=== PATIENT | male | born 1955 | race Caucasian/White ===

== ENCOUNTER 2017-11-10 10:11 | Day surgery (SDC) | payer BC ==
[~2017-11-10 10:11] MED LIST: CEFAZOLIN 2 GM/D5W RTU 2 GM/50 ML RTUPB IV PRN
--- NOTE | 2017-11-10 11:05 | RADIOLOGY REPORT (SQ) ---
EXAM DESCRIPTION: CHEST SINGLE VIEW COMPLETED DATE/TIME: 11/10/2017 10:54 am REASON FOR STUDY: preop COMPARISON: None. EXAM PARAMETERS: NUMBER OF VIEWS: One view. TECHNIQUE: Single frontal radiographic view of the chest acquired. RADIATION DOSE: NA LIMITATIONS: None. FINDINGS: LUNGS AND PLEURA: No opacities, masses or pneumothorax. No pleural effusion. MEDIASTINUM AND HILAR STRUCTURES: No masses. Contour normal. HEART AND VASCULAR STRUCTURES: Heart normal in size. Normal vasculature. BONES: Old healed right lateral 7th rib fracture HARDWARE: None in the chest. OTHER: No other significant finding. IMPRESSION: NO ACUTE RADIOGRAPHIC FINDING IN THE CHEST. TECHNICAL DOCUMENTATION: JOB ID: [id number] [employer]- All Rights Reserved Reading location - IP/workstation name: [email or web address]
[2017-11-10] MEDS ORDERED: BUPIVACAINE HCL 0.5 % INJ/PF 30 ML SDV ONE (11:14)
[2017-11-10] MEDS ORDERED: MIDAZOLAM 2 MG/2 ML INJ ONE (11:17)
[2017-11-10] MEDS ORDERED: PROPOFOL INJ 200 MG/20 ML VIAL IV ONE (11:18)
[2017-11-10] MEDS ORDERED: FENTANYL CITRATE INJ/PF 100 MCG/2 ML AMPUL ONE ×2 (11:18→14:45)
[2017-11-10 11:47] LABS: HEMATOCRIT 42.1 % (37.9-51.0); HEMOGLOBIN 14.3 g/dL (13.5-17.0); MEAN CORPUSCULAR HEMOGLOBIN 30.6 pg (27.0-33.4); MEAN CORPUSCULAR HGB CONC 34.1 g/dL (32.0-36.0); MEAN CORPUSCULAR VOLUME 90 fl (80-97); PLATELET COUNT 187 10^3/uL (150-450); RED BLOOD COUNT 4.68 10^6/uL (4.35-5.55); RED CELL DISTRIBUTION WIDTH 13.4 % (11.5-14.0); WHITE BLOOD COUNT 6.4 10^3/uL (4.0-10.5)
[2017-11-10 11:52] LABS: ANION GAP 9 (5-19); BLOOD UREA NITROGEN 20 mg/dL (7-20); CALCIUM 8.8 mg/dL (8.4-10.2); CARBON DIOXIDE 29 mmol/L (22-30); CHLORIDE 105 mmol/L (98-107); GLUCOSE 85 mg/dL (75-110); POTASSIUM 4.3 mmol/L (3.6-5.0); SODIUM 143.3 mmol/L (137-145)
[2017-11-10] MEDS ORDERED: FENTANYL CITRATE INJ/PF 100 MCG/2 ML AMPUL IV PRN ×2 (12:34→14:35)
[2017-11-10] MEDS ORDERED: DIPHENHYDRAMINE HCL 50 MG/ML VIAL IV PRN (12:34)
[2017-11-10] MEDS ORDERED: EPHEDRINE SULFATE INJ 50 MG/1 ML AMPULE ONE (13:13)
[2017-11-10] MEDS ORDERED: ONDANSETRON HCL INJ/PF 4 MG/2 ML SDV IV PRN (14:35)
[2017-11-10] MEDS ORDERED: HYDROCODONE/ACETAMINOPHEN 5-325 MG TABLET PO PRN (14:35)
--- NOTE | 2017-11-10 14:35 | Discharge Summary ---
Discharge Summary (SDC) - Discharge Final Diagnosis: Right index finger radial digital nerve laceration Date of Surgery: 11/10/17 Discharge Date: 11/10/17 Condition: Good Treatment or Instructions: Schedule Follow Up w/ Dr. Jovani Morin @ [facility] for Surgery to be seen in 10-14 days or as scheduled Finger: [place]: [place]: Ice and elevate Keep splint clean/dry/intact. If your fingers become numb please unwrap the Adam wrap but leave the splint in place, if the sensation does not return within 30 minutes please return to the emergency department. May begin finger range of motion attempting to make full fist. Please use ibuprofen (Motrin or Advil) 600-800 mg every 8 hours as needed for pain or fever DO NOT TAKE w/ TORADOL may use once TORADOL complete. You may also use acetaminophen (Tylenol) 1000 mg every 4-6 hours as needed for pain or fever. Please be aware that many medications contain acetaminophen, do not exceed a total of 1000 mg of acetaminophen every 6 hours. If ibuprofen and acetaminophen are not sufficient for your pain you may take the Percocet/[place]. Please be aware that the Percocet/[place] does contain Tylenol. Stool softener of choice when on pain medication. Referrals: FADI TORREZ MD [Primary Care Provider] - Discharge Diet: As Tolerated Respiratory Treatments at Home: Deep Breathing/Coughing Discharge Activity: No Lifting Over 10 Pounds, No Lifting/Push/Pulling Report the Following to Your Physician Immediately: Fever over 101 Degrees, Unusual Bleeding, Redness, Swelling, Warmth, Increased Soreness
--- NOTE | 2017-11-10 14:35 | Operative Report ---
Operative Report DATE OF SURGERY: 11/10/17 PREOPERATIVE DIAGNOSIS: Left index finger radial digital nerve laceration POSTOPERATIVE DIAGNOSIS: Same OPERATION: Left index radial digital nerve reconstruction utilizing allograft. SURGEON: ROBYN HYATT ANESTHESIA: GA COMPLICATIONS: None ESTIMATED BLOOD LOSS: Minimal INTRAOPERATIVE FINDINGS: 1.2 cm radial digital nerve defect PROCEDURE: Indication for above procedure: 62-year-old male who sustained injury to his index finger at work with a puncture wound. According to the patient when he took the screw out of his finger a small piece of tissue was removed. On his initial consultation patient complained of numbness but his pain had improved but after 7 days his pain significantly worsened and began having burning pain along with his numbness. At that point we discussed treatment options once again including operative versus nonoperative intervention after discussing risk and benefits joint decision was made to proceed with operative treatment. Procedure In Detail: Patient was seen and evaluated in the preoperative holding area. The LEFT Upper extremity was initialized and marked. Patient received 2g of Ancef IV for bacterial prophylaxis. Patient was taken back to the operative room where transferred to the operative table and placed under general anesthesia. Once they were adequately anesthetized a nonsterile tourniquet was placed on the upper extremity. A surgical team debriefing was performed ensuring all instrumentation was available, the surgical procedure was discussed with possible concerns reviewed. The upper extremity was prepped with chlorhexidine and alcohol and draped in a sterile fashion. A timeout was done identifying correct patient, procedure and extremity everyone in attendance agree with this and verbalized no concerns. The extremity was exsanguinated the tourniquet was inflated to 250 mmHg. Incision was started at the puncture wound extending proximally and distally with windlace machine operator extensions. Blunt dissection was performed. There is significant scarring at the level of the a 4 tish radially. Blunt dissection was performed to isolate the proximal and distal radial digital nerve which was significantly scarred to the surrounding soft tissues. Once appropriately isolated the microscope was utilized to evaluate for normal appearing nerve fascicles. Approximately the nerve was resected until normal fascicles appeared. Distally there fascicles were identified normal approximately 1 mm proximal to the trifurcation. Once debrided to normal fascicles there is approximately 2 cm nerve gap and thus a 1-2 mm x 30 mm Avance nerve graft was opened and placed in saline. Once it was the appropriate consistency the nerve was approximated with 2 simple 9-0 nylon sutures via epineural repair distally the nerve was then resected and reapproximated proximally with 2 simple 9-0 nylon sutures via epineural repair the nerve was repaired without tension with the finger in full extension. With passive range of motion of the digit there is no evidence of tension on the nerve. A 3 x 15 mm nerve protector was converted to a nerve connector and secured along the proximal repair site with interrupted 8-0 nylon suture. A second 3 x 15 mm nerve protector was converted to a nerve connector and secured protecting the distal repair site with interrupted 8-0 nylon suture. At completion of the case the wound was copiously irrigated with normal saline. The tourniquet was deflated and compression was held for 2 minutes. Any peripheral bleeding was controlled with bipolar cautery until the wound was dry. Wound reapproximated with interrupted 4-0 nylon suture. Xeroform 4 x 4's and a radial gutter splint was placed in the intrinsic plus position. Patient had good peripheral perfusion with normal skin turgor at the completion of the case. Sponge counts, instrument counts, needle counts counts were correct. Patient was then awoken from anesthesia. Transferred from the operating room table to the operating room stretcher. There was no intraoperative complications patient tolerated procedure well stable to PACU. Postoperative plan: Patient will follow-up in the office in 2 weeks for suture removal. Will be started and seen in occupational therapy prior to postoperative follow-up be fitted for a thermoplastic splint and begin range of motion as per digital nerve repair protocol.
[2017-11-10] MEDS: FENTANYL CITRATE INJ/PF 100 MCG/2 ML AMPUL IV PRN ×2 (14:45→14:55)
[2017-11-10] MEDS ORDERED: PROMETHAZINE HCL INJ 25 MG/1 ML VIAL ONE (15:05)
[2017-11-10] MEDS ORDERED: DEXAMETHASONE SOD PHOSPHATE INJ 4 MG/1 ML VIAL ONE (15:44)
[2017-11-10] MEDS ORDERED: SUCCINYLCHOLINE CHLORIDE INJ 200 MG/10 ML VIAL ONE (15:44)
[2017-11-10] MEDS ORDERED: KETOROLAC TROMETHAMINE 60 MG/2 ML SDV ONE (15:44)
[2017-11-10] MEDS ORDERED: ONDANSETRON HCL INJ/PF 4 MG/2 ML SDV ONE (15:44)
[2017-11-10 17:14] VITALS: BP 135/89
--- NOTE | 2017-11-10 18:18 | EKG REPORT ---
SEVERITY:- NORMAL ECG - SINUS RHYTHM : Confirmed by: Jono Webber 10-Nov-2017 18:17:39
== END 2017-11-10 17:08 | disposition home or self-care (01) ==
LOC: OROUT 10:11
PROVIDERS: ATTEND Orthopaedic Surgery
DX: S64.490A Injury of digital nerve of right index finger, initial encounter (principal); W45.0XXA Nail entering through skin, initial encounter; Y92.69 Other specified industrial and construction area as the place of occurrence of the external cause; Y99.0 Civilian activity done for income or pay; M79.645 Pain in left finger(s); I48.91 Unspecified atrial fibrillation; K21.9 Gastro-esophageal reflux disease without esophagitis; Z88.5 Allergy status to narcotic agent; Z88.6 Allergy status to analgesic agent; Z79.899 Other long term (current) drug therapy; Z79.51 Long term (current) use of inhaled steroids; Z87.891 Personal history of nicotine dependence; Z85.46 Personal history of malignant neoplasm of prostate; Z85.51 Personal history of malignant neoplasm of bladder
CPT/HCPCS: 36415; 85027; 80048; 71045; 93005; 93010; 64910; C9250; C1769; J2250; J3490 ×2; J1100; J1885; J3010; J2550; J0330; J2405; J2704; J0690; 1810

== ENCOUNTER 2018-03-30 11:08 | Day surgery (SDC) | payer BC ==
[~2018-03-30 11:08] MED LIST changes: +BUPIVACAINE HCL 0.5 % INJ/PF 30 ML SDV ONE; -CEFAZOLIN 2 GM/D5W RTU 2 GM/50 ML RTUPB IV PRN; +CEFAZOLIN SODIUM 2 GM in DEXTROSE 5%-WATER 100 ML IV PRN
[2018-03-30] MEDS ORDERED: ONDANSETRON HCL INJ/PF 4 MG/2 ML SDV ONE (11:34)
[2018-03-30] MEDS ORDERED: FENTANYL CITRATE INJ/PF 250 MCG/5 ML AMPULE ONE (11:34)
[2018-03-30] MEDS ORDERED: DEXAMETHASONE SOD PHOSPHATE INJ 4 MG/1 ML VIAL ONE (11:34)
[2018-03-30] MEDS ORDERED: MIDAZOLAM 2 MG/2 ML INJ ONE (11:34)
[2018-03-30] MEDS ORDERED: LIDOCAINE 2% INJ-PF (20 MG/ML) 10 ML AMPUL ONE (11:34)
[2018-03-30] MEDS ORDERED: PROPOFOL INJ 200 MG/20 ML VIAL IV ONE (11:35)
[2018-03-30 12:32] LABS: ANION GAP 8 (5-19); BLOOD UREA NITROGEN 18 mg/dL (7-20); CALCIUM 8.9 mg/dL (8.4-10.2); CARBON DIOXIDE 24 mmol/L (22-30); CHLORIDE 107 mmol/L (98-107); GLUCOSE 95 mg/dL (75-110); POTASSIUM 4.3 mmol/L (3.6-5.0)
[2018-03-30] MEDS ORDERED: PROMETHAZINE HCL INJ 25 MG/1 ML VIAL IV PRN ×2 (12:52)
[2018-03-30] MEDS ORDERED: DIPHENHYDRAMINE HCL 50 MG/ML VIAL IV PRN (12:52)
[2018-03-30] MEDS ORDERED: MEPERIDINE HCL/PF INJ 25 MG/1 ML DISP.SYRIN IV PRN (12:52)
[2018-03-30] MEDS ORDERED: FENTANYL CITRATE INJ/PF 100 MCG/2 ML AMPUL IV PRN ×3 (12:52)
--- NOTE | 2018-03-30 13:09 | EKG REPORT ---
SEVERITY:- NORMAL ECG - SINUS RHYTHM : Confirmed by: Madi Taylor MD 30-Mar-2018 13:08:42
--- NOTE | 2018-03-30 14:17 | Discharge Summary ---
Discharge Summary (SDC) - Discharge Final Diagnosis: She has lowsRight thumb FPL/radial digital nerve laceration Date of Surgery: 03/30/18 Discharge Date: 03/30/18 Condition: Good Treatment or Instructions: Schedule Follow Up w/ Dr. Jovani Morin @ [facility] for Surgery to be seen in 10-14 days or as scheduled [place]: [place]: [place]: Ice and elevate Keep splint clean/dry/intact. If your fingers become numb please unwrap the Adam wrap but leave the splint in place, if the sensation does not return within 30 minutes please return to the emergency department. May begin finger range of motion attempting to make full fist. Please use ibuprofen (Motrin or Advil) 600-800 mg every 8 hours as needed for pain or fever DO NOT TAKE w/ TORADOL may use once TORADOL complete. You may also use acetaminophen (Tylenol) 1000 mg every 4-6 hours as needed for pain or fever. Please be aware that many medications contain acetaminophen, do not exceed a total of 1000 mg of acetaminophen every 6 hours. If ibuprofen and acetaminophen are not sufficient for your pain you may take the Percocet/[place]. Please be aware that the Percocet/[place] does contain Tylenol. Stool softener of choice when on pain medication. Prescriptions: Hydrocodone/Acetaminophen [[place] 5-325 mg Tablet] 1 tab PO Q6 PRN #25 tablet PRN Reason: Referrals: FADI TORREZ MD [Primary Care Provider] - Discharge Diet: As Tolerated Respiratory Treatments at Home: Deep Breathing/Coughing Discharge Activity: Activity As Tolerated Report the Following to Your Physician Immediately: Fever over 101 Degrees, Unusual Bleeding, Redness, Swelling, Warmth, Increased Soreness
--- NOTE | 2018-03-30 14:23 | Operative Report ---
Operative Report DATE OF SURGERY: 03/30/18 PREOPERATIVE DIAGNOSIS: Right thumb laceration POSTOPERATIVE DIAGNOSIS: Right thumb partial FPL/partial radial digital nerve laceration OPERATION: 1. Right thumb FPL repair. 2. Right thumb radial digital nerve repair SURGEON: ROBYN HYATT ANESTHESIA: GA - Patient COMPLICATIONS: None ESTIMATED BLOOD LOSS: Minimal PROCEDURE: Indication for above procedure: 62-year-old male who sustained a laceration to his right thumb with a profile grinder. He was seen at my office where the area was irrigated and loosely closed. Patient was then set up for operative intervention. Risks and benefits were explained patient verbalized understanding consented for the procedure. Procedure In Detail: Patient was seen and evaluated in the preoperative holding area. The RIGHT upper extremity was initialized and marked. Patient received 2g of Ancef IV for bacterial prophylaxis. Patient was taken back to the operative room where transferred to the operative table and placed under general anesthesia. Once they were adequately anesthetized a nonsterile tourniquet was placed on the upper extremity. A surgical team debriefing was performed ensuring all instrumentation was available, the surgical procedure was discussed with possible concerns reviewed. The upper extremity was prepped with chlorhexidine and alcohol and draped in a sterile fashion. A timeout was done identifying correct patient, procedure and extremity everyone in attendance agree with this and verbalized no concerns. The extremity was exsanguinated the tourniquet was inflated to 250 mmHg. Skin incision was extended proximally and distally. There was a small amount of purulence on the proximal aspect of the wound no erythema. Contamination along the skin edges from metal fragments was identified and removed. Blunt dissection was performed and skin flaps secured with 3-0 nylon. The ulnar neurovascular bundle was identified without disruption. The radial neurovascular bundle demonstrated partial laceration of the radial digital nerve approximately 35% no evidence of digital radial artery disruption. FPL was identified and 70% of the tendon was lacerated. The edges were debrided I then reapproximated the partial laceration with a 4-0 FiberWire utilizing [id number] stitch. There was no evidence of tendon gapping with passive extension. The radial digital nerve was then debrided from metal fragments the fascicles debrided. With microscope magnification the partial repair was reapproximated with a 9-0 nylon suture reinforced with Tisseel fibrin glue. A 3 mm x 15 mm nerve connector was transition to a protector and secured over the digital nerve with interrupted 8-0 nylon suture. With passive active motion there is no evidence of nerve gapping. The wound was then copiously irrigated with normal saline skin edges debrided. Tourniquet was deflated. Any peripheral bleeding was controlled with bipolar cautery until the wound was dry. Incision was reapproximated with 3-0 nylon suture. 30 cc of 0.5% bupivacaine without epinephrine was injected for postoperative pain control. Patient was placed in a fiberglass splint maintaining neutral position of the IP/MP joints and wrist at 20 degrees of extension. Sponge counts, instrument counts, needle counts were correct. Patient was then awoken from anesthesia. Transferred from the operating room table to the operating room stretcher. There was no intraoperative complications patient tolerated procedure well stable to PACU. Postoperative plan: Patient follow-up in 2 weeks for suture removal will start him in occupational therapy to be fitted for a thermoplastic splint may progress with full active flexion avoiding hyperextension of the IP and MP joints.
[2018-03-30] MEDS ORDERED: EPHEDRINE SULFATE INJ 50 MG/1 ML AMPULE ONE (14:32)
[2018-03-30] MEDS ORDERED: PROMETHAZINE HCL INJ 25 MG/1 ML VIAL ONE (16:02)
[2018-03-30 17:42] VITALS: BP 107/63
== END 2018-03-30 17:30 | disposition home or self-care (01) ==
LOC: OROUT 11:08
PROVIDERS: ATTEND Orthopaedic Surgery
DX: S64.31XA Injury of digital nerve of right thumb, initial encounter (principal); S66.021A Laceration of long flexor muscle, fascia and tendon of right thumb at wrist and hand level, initial encounter; S61.011A Laceration without foreign body of right thumb without damage to nail, initial encounter; W29.0XXA Contact with powered kitchen appliance, initial encounter; Z85.46 Personal history of malignant neoplasm of prostate; Z85.51 Personal history of malignant neoplasm of bladder; I48.91 Unspecified atrial fibrillation; K21.9 Gastro-esophageal reflux disease without esophagitis; M19.90 Unspecified osteoarthritis, unspecified site
CPT/HCPCS: 64910; 36415; 80048; 93005; 93010; 26356; C9250; C1763; J2250; J3490 ×3; J0690; J1100; J3010; J2550; J2405; J2704; 1810